=== PATIENT | female | born 1940 | race Native Hawaiian/Other Pacific Islander ===

== ENCOUNTER 2016-10-08 08:37 | Outpatient (CLI) | payer OTHER ==
[~2016-10-08 08:37] MED LIST: BENICAR HCT1 TA1 PO; CIPRO500 MG PO; LEVO0.0723 PO; METF100038 OR; MOBIC7.5 M1 PO; SIMV40TA57; SIMV40TA57 PO
== END 2016-10-08 19:24 | disposition home or self-care (01) ==
LOC: MAMMO 08:37
DX: Z12.31 Encounter for screening mammogram for malignant neoplasm of breast (principal)
CPT/HCPCS: G0202-TC

== ENCOUNTER 2017-02-22 08:06 | Outpatient (CLI) | payer OTHER ==
[2017-02-22 08:29] LABS: PLATELET COUNT 181 K/uL (152-353)
[2017-02-22 08:54] LABS: POTASSIUM 3.9 mmol/L (3.6-5.2); SODIUM 141 mmol/L (136-145)
== END 2017-02-22 19:01 | disposition home or self-care (01) ==
LOC: LABW 08:06
PROVIDERS: Physician Assistant
DX: E11.9 Type 2 diabetes mellitus without complications (principal); E03.8 Other specified hypothyroidism; I10 Essential (primary) hypertension
CPT/HCPCS: 36415; 80053; 80061; 83036; 83735; 84439; 84443; 85027

== ENCOUNTER 2017-03-27 09:28 | Outpatient (CLI) | payer OTHER | END 2017-03-27 22:47 | disposition home or self-care (01) | LOC: RAD 09:28 | DX: M85.88 Other specified disorders of bone density and structure, other site (principal) ==

== ENCOUNTER 2017-12-25 07:42 | Outpatient (CLI) | payer OTHER ==
[2017-12-25 08:03] LABS: PLATELET COUNT 195 K/uL (152-353)
[2017-12-25 22:41] LABS: POTASSIUM 3.6 mmol/L (3.6-5.2)
== END 2017-12-25 19:15 | disposition home or self-care (01) ==
LOC: LABW 07:42
PROVIDERS: Internal Medicine
DX: E11.9 Type 2 diabetes mellitus without complications (principal); R82.99 Other abnormal findings in urine
CPT/HCPCS: 36415; 80053; 80061; 81000; 82043; 82570; 83036; 84439; 84443; 85027; 87086; 87088

== ENCOUNTER 2018-01-09 09:58 | Outpatient (CLI) | payer OTHER | END 2018-01-09 23:20 | disposition home or self-care (01) | LOC: MAMMO 09:58 | DX: M54.2 Cervicalgia (principal); Z12.31 Encounter for screening mammogram for malignant neoplasm of breast ==

== ENCOUNTER 2018-06-23 16:22 | Outpatient (CLI) | payer OTHER | END 2018-06-23 20:07 | disposition home or self-care (01) | LOC: RAD 16:22 | DX: M25.562 Pain in left knee (principal) ==

== ENCOUNTER 2018-06-24 12:03 | Outpatient (CLI) | payer OTHER | END 2018-06-24 23:16 | disposition home or self-care (01) | LOC: US 12:03 | DX: M79.89 Other specified soft tissue disorders (principal) ==

== ENCOUNTER 2019-01-20 06:44 | Outpatient (CLI) | payer OTHER ==
[2019-01-20 07:23] LABS: PLATELET COUNT 207 K/uL (152-353)
== END 2019-01-20 23:10 | disposition home or self-care (01) ==
LOC: LABW 06:44
PROVIDERS: Internal Medicine
DX: E11.9 Type 2 diabetes mellitus without complications (principal); E03.8 Other specified hypothyroidism
CPT/HCPCS: 36415; 80053; 80061; 81000; 82306; 83036; 84439; 84443; 85027

== ENCOUNTER 2019-02-09 10:28 | Outpatient (CLI) | payer OTHER | END 2019-02-09 22:08 | disposition home or self-care (01) | LOC: MAMMO 10:28 | DX: Z12.31 Encounter for screening mammogram for malignant neoplasm of breast (principal) ==

== ENCOUNTER 2019-04-22 07:39 | Outpatient (CLI) | payer OTHER | END 2019-04-22 19:25 | disposition home or self-care (01) | LOC: LABW 07:39 | DX: E03.8 Other specified hypothyroidism (principal) | CPT/HCPCS: 36415; 84439; 84443 ==

== ENCOUNTER 2019-06-01 13:04 | Outpatient (CLI) | payer OTHER | END 2019-06-01 19:36 | disposition home or self-care (01) | LOC: LAB 13:04 | DX: R30.0 Dysuria (principal) | CPT/HCPCS: 87086; 87088 ==

== ENCOUNTER 2020-02-03 12:59 | Outpatient (CLI) | payer OTHER ==
[2020-02-03 13:17] LABS: PLATELET COUNT 200 K/uL (152-353)
== END 2020-02-03 19:09 | disposition home or self-care (01) ==
LOC: LAB 12:59
PROVIDERS: Internal Medicine
DX: E11.9 Type 2 diabetes mellitus without complications (principal); E03.8 Other specified hypothyroidism
CPT/HCPCS: 80053; 81000; 83036; 84439; 84443; 85027

== ENCOUNTER 2020-03-14 13:56 | Outpatient (CLI) | payer OTHER | END 2020-03-14 19:11 | disposition home or self-care (01) | LOC: RESP 13:56 → MAMMO 15:00 → RESP 19:11 | DX: R07.89 Other chest pain (principal); I10 Essential (primary) hypertension; Z12.31 Encounter for screening mammogram for malignant neoplasm of breast; I25.10 Atherosclerotic heart disease of native coronary artery without angina pectoris ==

== ENCOUNTER 2020-08-04 08:20 | Outpatient (CLI) | payer OTHER ==
[2020-08-04 09:15] LABS: POTASSIUM 3.9 mmol/L (3.6-5.2)
== END 2020-08-04 20:30 | disposition home or self-care (01) ==
LOC: LABW 08:20
PROVIDERS: ATTEND Specialist
DX: R53.1 Weakness (principal); M62.89 Other specified disorders of muscle; R42 Dizziness and giddiness; E53.8 Deficiency of other specified B group vitamins
CPT/HCPCS: 36415; 80053; 82085; 82550; 82607; 82784; 85652; 86225; 86235

== ENCOUNTER 2020-09-13 08:46 | Outpatient (CLI) | payer OTHER | END 2020-09-13 21:56 | disposition home or self-care (01) | LOC: RESP 08:46 | PROVIDERS: ATTEND Specialist | DX: R53.1 Weakness (principal); M62.89 Other specified disorders of muscle ==